=== PATIENT | female | born 1995 | race Caucasian/White ===

== ENCOUNTER 2019-04-11 12:40 | Emergency (ER) | payer OTHER ==
[~2019-04-11] VITALS: Ht 170.2 cm; Wt 62.1 kg
--- NOTE | 2019-04-11 12:55 | ED Syncope ---
General Stated Complaint: SYNCOPE Source of Information: Patient, EMS Exam Limitations: No Limitations History of Present Illness Date Seen by Provider: April 11, 2019 Time Seen by Provider: 12:37 Initial Comments Patient presents to ER by EMS from [facility] with chief complaint that she came in to urgent care today because she was having general malaise, weakness and lack of appetite for the past 2 weeks. She thinks she's lost couple pounds in the last few days because of decreased appetite. Apparently she looked very pale and so they took her to a bed got her blood pressure was 77 systolic. She had a near syncopal event. She felt clammy. Blood sugar was 80 per EMS and when she was laying down when they arrived her blood pressure was 100. They started a 20- gauge in liter of saline. She denies any recent history of nausea vomiting, fever, diarrhea or constipation abdominal pain. She does have some general intermittent aches in her shoulders and bilateral knees. No rashes or tick bites . No medical history. She used to follow Dr. Garay up until a few years ago. She does not take medicines nor have medical allergies. She does not smoke or use recreational drugs. She does occasionally have alcohol but none recently. 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 G0 Allergies and Home Medications Allergies Coded Allergies: No Known Drug Allergies (Unverified , 04/11/19) Home Medications No Active Prescriptions or Reported Meds Patient Home Medication List Home Medication List Reviewed: Yes Review of Systems Constitutional: see HPI; No chills, No fever; malaise EENTM: No ear discharge, No hearing loss Respiratory: No cough, No short of breath Cardiovascular: No chest pain, No edema Gastrointestinal: No abdominal pain, No constipation, No diarrhea, No nausea Genitourinary: No dysuria, No frequency : No LMP: March 21, 2019 Musculoskeletal: see HPI; No back pain; joint pain (bilateral shoulders and knees intermittent aching) Skin: No lesions, No pruritus, No rash Past [id number] Hx Patient Social History Alcohol Use: Rarely Uses Recreational Drug Use: No Smoking Status: Never a Smoker Physical Exam Vital Signs Vital Signs - First Documented 04/11/19 12:40 Temp 97.3 Pulse 81 Resp 20 B/P (MAP) 110/66 (81) Pulse Ox 100 O2 Delivery Room Air Capillary Refill : Height, Weight, BMI Height: '" Weight: lbs. oz. 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 Norm as Tested Cranial Nerves: Normal Hearing, Normal Speech, PERRL Motor/Sensory: No Motor Deficit, No Sensory Deficit Skin: Warm/Dry, Pallor Progress/Results/Core Measures Results/Orders Lab Results Laboratory Tests Test 04/11/19 12:50 04/11/19 13:55 Range/Units White Blood Count 6.3 4.3-11.0 10^3/uL Red Blood Count 4.73 4.35-5.85 10^6/uL Hemoglobin 13.6 11.5-16.0 G/DL Hematocrit 39 35-52 % Mean Corpuscular Volume 81 80-99 FL Mean Corpuscular Hemoglobin 29 25-34 PG Mean Corpuscular Hemoglobin Concent 35 32-36 G/DL Red Cell Distribution Width 12.3 10.0-14.5 % Platelet Count 242 130-400 10^3/uL Mean Platelet Volume 10.9 H 7.4-10.4 FL Neutrophils (%) (Auto) 45 42-75 % Lymphocytes (%) (Auto) 38 12-44 % Monocytes (%) (Auto) 14 H 0-12 % Eosinophils (%) (Auto) 3 0-10 % Basophils (%) (Auto) 0 0-10 % Neutrophils # (Auto) 2.8 1.8-7.8 X 10^3 Lymphocytes # (Auto) 2.4 1.0-4.0 X 10^3 Monocytes # (Auto) 0.9 0.0-1.0 X 10^3 Eosinophils # (Auto) 0.2 0.0-0.3 10^3/uL Basophils # (Auto) 0.0 0.0-0.1 10^3/uL Sodium Level 131 L 135-145 MMOL/L Potassium Level 3.8 3.6-5.0 MMOL/L Chloride Level 93 L 98-107 MMOL/L Carbon Dioxide Level 20 L 21-32 MMOL/L Anion Gap 18 H 5-14 MMOL/L Blood Urea Nitrogen 12 7-18 MG/DL Creatinine 0.71 0.60-1.30 MG/DL Estimat Glomerular Filtration Rate > 60 BUN/Creatinine Ratio 17 Glucose Level 94 70-105 MG/DL Calcium Level 8.9 8.5-10.1 MG/DL Corrected Calcium 8.7 8.5-10.1 MG/DL Magnesium Level 1.6 L 1.8-2.4 MG/DL Total Bilirubin 0.8 0.1-1.0 MG/DL Aspartate Amino Transf (AST/SGOT) 21 5-34 U/L Alanine Aminotransferase (ALT/SGPT) 20 0-55 U/L Alkaline Phosphatase 33 L 40-136 U/L Total Protein 6.8 6.4-8.2 GM/DL Albumin 4.2 3.2-4.5 GM/DL Serum Test, Qualitative NEGATIVE NEGATIVE Urine Color DARK YELLOW Urine Clarity CLEAR Urine pH 6.0 5-9 Urine Specific [place] 1.025 H 1.016-1.022 Urine Protein NEGATIVE NEGATIVE Urine Glucose (UA) NEGATIVE NEGATIVE Urine Ketones 2+ H NEGATIVE Urine Nitrite NEGATIVE NEGATIVE Urine Bilirubin 1+ H NEGATIVE Urine Urobilinogen 0.2 NORMAL MG/DL Urine Leukocyte Esterase NEGATIVE NEGATIVE Urine RBC (Auto) NEGATIVE NEGATIVE Urine RBC NONE /HPF Urine WBC 0-2 /HPF Urine Squamous Epithelial Cells 5-10 /HPF Urine Crystals NONE /LPF Urine Bacteria TRACE /HPF Urine Casts NONE /LPF Urine Mucus LARGE H /LPF Urine Culture Indicated NO Urine Opiates Screen NEGATIVE NEGATIVE Urine Oxycodone Screen NEGATIVE NEGATIVE Urine Methadone Screen NEGATIVE NEGATIVE Urine Propoxyphene Screen NEGATIVE NEGATIVE Urine Barbiturates Screen NEGATIVE NEGATIVE Ur Tricyclic Antidepressants Screen NEGATIVE NEGATIVE Urine Phencyclidine Screen NEGATIVE NEGATIVE Urine Amphetamines Screen NEGATIVE NEGATIVE Urine Methamphetamines Screen NEGATIVE NEGATIVE Urine Benzodiazepines Screen NEGATIVE NEGATIVE Urine Cocaine Screen NEGATIVE NEGATIVE Urine Cannabinoids Screen NEGATIVE NEGATIVE My Orders Orders - BUBBA LAM Cbc With Automated Diff (04/11/19 12:47) Comprehensive Metabolic Panel (04/11/19 12:47) Drug Screen Stat (Urine) (04/11/19 12:47) Hcg,Qualitative Serum (04/11/19 12:47) Magnesium (04/11/19 12:47) Ua Culture If Indicated (04/11/19 12:47) Chest 1 View Ap/Pa Only (04/11/19 12:47) Ct Head Wo (04/11/19 12:47) Continuous Ekg Monitoring (04/11/19 12:47) Ekg Tracing (04/11/19 12:47) Orthostatic Vital Signs (Adult (04/11/19 12:57) Thyroid Stimulating Hormone (04/11/19 12:50) Ed Iv/Invasive Line Start (04/11/19 14:18) Ns Iv 500 Ml (Sodium Chloride 0.9%) (04/11/19 14:18) Medications Given in ED Current Medications Medications Dose Ordered Sig/Frida Route Start Time Stop Time Status Last Admin Dose Admin Sodium Chloride 500 ml @ 0 mls/hr Q0M ONCE IV 04/11/19 14:18 04/11/19 14:19 DC 04/11/19 14:22 999 MLS/HR Vital Signs/I&O 04/11/19 04/11/19 12:40 14:00 Temp 97.3 Pulse 81 79 93 101 Resp 20 B/P (MAP) 110/66 (81) 115/65 (82) 118/65 (82) 111/59 (76) Pulse Ox 100 O2 Delivery Room Air Progress Progress Note #1: Time: 13:14 Progress Note Vasovagal versus orthostatic hypotension from possible infection, anemia, pots, tumor,? EKG, chest x-ray, blood and urine, hCG drug screen and CT of the head. Progress Note #2: Time: 14:06 Progress Note After her liter of fluids randomly had an orthostatic vitals obtained which will the blood pressure did not get this time her heart rate went from 79 up to 110 on standing which is still significant and could represent pots. Plan oral rehydration and another 500 cc of fluid which would be between 20 and 30 cc/kg. Urinalysis pending. Initial ECG Impression Date: April 11, 2019 Initial ECG Impression Time: 12:58 Initial ECG Rate: 72 Initial ECG Rhythm: Normal Sinus Initial ECG Intervals: Normal Initial ECG Impression: Normal Initial ECG Comparisson: No Previous ECG Available Comment No clinically significant ST changes. Diagnostic Imaging Diagonstic Imaging: Xray Plain Films/CT/US/NM/MRI: chest (1v) Comments NAME: SENTHIL PISANO [facility] REC#: [id number] PT STATUS: REG ER : 1995 PHYSICIAN: BUBBA LAM MD ADMIT DATE: 04/11/19/ER FS Draft Date of Exam:04/11/19 CHEST 1 VIEW AP/PA ONLY INDICATION: Hypotension, syncope. Portable chest at 01:12 p.m. FINDINGS: Heart size and pulmonary vascularity are normal. Lungs are clear. There are no effusions or pneumothoraces. IMPRESSION: Negative chest. Dictated on workstation # [id number] Dict: 04/11/19 1343 Trans: 04/11/19 1357 [id number] Interpreted by: CHELSEA BARNARD MD Electronically signed by: NAME: SENTHIL PISANO [facility] REC#: [id number] PT STATUS: REG ER : 1995 PHYSICIAN: BUBBA LAM MD ADMIT DATE: 04/11/19/ER FS Draft Date of Exam:04/11/19 CHEST 1 VIEW AP/PA ONLY INDICATION: Hypotension, syncope. Portable chest at 01:12 p.m. FINDINGS: Heart size and pulmonary vascularity are normal. Lungs are clear. There are no effusions or pneumothoraces. IMPRESSION: Negative chest. Dictated on workstation # [id number] Dict: 04/11/19 1343 Trans: 04/11/19 1357 [id number] Interpreted by: CHELSEA BARNARD MD Electronically signed by: Reviewed: Reviewed by Me Diagonstic Imaging: CT (noncontrast) Plain Films/CT/US/NM/MRI: head Comments NAME: SENTHIL PISANO [facility] REC#: [id number] PT STATUS: REG ER : 1995 PHYSICIAN: BUBBA LAM MD ADMIT DATE: 04/11/19/ER FS Draft Date of Exam:04/11/19 CT HEAD WO PROCEDURE: CT head without contrast. TECHNIQUE: Multiple contiguous axial images were obtained through the brain without the use of intravenous contrast. Auto Exposure Controls were utilized during the CT exam to meet ALARA standards for radiation dose reduction. INDICATION: Syncope and low blood pressure. COMPARISON: No prior studies are available for comparison. FINDINGS: Ventricles and sulci are within normal limits. No sulcal effacement, midline shift or hemorrhage is detected. Cisterns are patent. Visualized paranasal sinuses are clear. IMPRESSION: No acute intracranial process is detected. Dictated on workstation # [id number] Dict: 04/11/19 1418 Trans: 04/11/19 1422 [facility] [id number] Interpreted by: GUI MONTERROSO MD Electronically signed by: Reviewed: Reviewed by Me Departure Impression Primary Impression: Orthostatic hypotension Additional Impression: Vasovagal near-syncope Disposition: 01 HOME, SELF-CARE Condition: Improved Departure-Patient Inst. Decision time for Depature: 14:52 Referrals: STEPHANY KUHN MD Patient Instructions: LOCAL PHYSICIAN LIST, Orthostatic Hypotension (DC) Add. Discharge Instructions: Drink more fluids for the time being. Sports drinks such as Gatorade or Powerade are encouraged. Limit or avoid caffeine for now. Establish care with a primary care doctor. You may call the bacteriologist pharmaceutical Dr. Kuhn and request an appointment in the next 1-2 weeks for further workup/characterization of why you're passing out. If you have new or worrisome symptoms such as intractable nausea vomiting, chest pain, shortness of breath then I would invite you to return to the nearest ER for further evaluation. Scripts No Active Prescriptions or Reported Meds Copy Copies To 1: STEPHANY KUHN MD, TITUS J April 11, 2019 12:55
[2019-04-11 13:38] LABS: BASOPHILS % (AUTO) 0 % (0-10); EOSINOPHILS % (AUTO) 3 % (0-10); HEMATOCRIT 39 % (35-52); HEMOGLOBIN 13.6 G/DL (11.5-16.0); LYMPHOCYTES % (AUTO) 38 % (12-44); MEAN CORPUSCULAR HEMOGLOBIN 29 PG (25-34); MEAN CORPUSCULAR HGB CONC 35 G/DL (32-36); MEAN CORPUSCULAR VOLUME 81 FL (80-99); MEAN PLATELET VOLUME 10.9 FL (7.4-10.4); MONOCYTES % (AUTO) 14 % (0-12); NEUTROPHILS # (AUTO) 2.8 X 10^3 (1.8-7.8); NEUTROPHILS % (AUTO) 45 % (42-75); PLATELET COUNT 242 10^3/uL (130-400); RED CELL DISTRIBUTION WIDTH 12.3 % (10.0-14.5); WHITE BLOOD COUNT 6.3 10^3/uL (4.3-11.0)
[2019-04-11 13:39] LABS: EOSINOPHILS # (AUTO) 0.2 10^3/uL (0.0-0.3); LYMPHOCYTES # (AUTO) 2.4 X 10^3 (1.0-4.0); MONOCYTES # (AUTO) 0.9 X 10^3 (0.0-1.0)
[2019-04-11 13:43] LABS: ALANINE AMINOTRANSFERASE 20 U/L (0-55); ALBUMIN 4.2 GM/DL (3.2-4.5); ALKALINE PHOSPHATASE 33 U/L (40-136); BILIRUBIN,TOTAL 0.8 MG/DL (0.1-1.0); BUN/CREATININE RATIO 17; CALCIUM 8.9 MG/DL (8.5-10.1); CARBON DIOXIDE 20 MMOL/L (21-32); CHLORIDE 93 MMOL/L (98-107); CREATININE SERUM 0.71 MG/DL (0.60-1.30); GFR ESTIMATED > 60; GLUCOSE 94 MG/DL (70-105); MAGNESIUM 1.6 MG/DL (1.8-2.4); POTASSIUM 3.8 MMOL/L (3.6-5.0); SODIUM 131 MMOL/L (135-145); TOTAL PROTEIN 6.8 GM/DL (6.4-8.2)
--- NOTE | 2019-04-11 13:58 | Diagnostic Imaging Report ---
INDICATION: Hypotension, syncope. Portable chest at 01:12 p.m. FINDINGS: Heart size and pulmonary vascularity are normal. Lungs are clear. There are no effusions or pneumothoraces. IMPRESSION: Negative chest. Dictated by: Dictated on workstation # [id number]
[2019-04-11 14:00] VITALS: BP_SYST 111; BP_SYST 115; BP_SYST 118; BP_DIAS 59; BP_DIAS 65
--- NOTE | 2019-04-11 14:00 | NUR ---
ORTHOSTATS COMPLETED AFTER 1 L BOLUS.
--- NOTE | 2019-04-11 14:17 | NUR ---
ICE WATER GRANTED, DR PLANNING MORE FLUIDS.
[2019-04-11] MEDS: NS IV 500 ML 500 ML IV ONE (14:22)
--- NOTE | 2019-04-11 14:23 | Diagnostic Imaging Report ---
PROCEDURE: CT head without contrast. TECHNIQUE: Multiple contiguous axial images were obtained through the brain without the use of intravenous contrast. Auto Exposure Controls were utilized during the CT exam to meet ALARA standards for radiation dose reduction. INDICATION: Syncope and low blood pressure. COMPARISON: No prior studies are available for comparison. FINDINGS: Ventricles and sulci are within normal limits. No sulcal effacement, midline shift or hemorrhage is detected. Cisterns are patent. Visualized paranasal sinuses are clear. IMPRESSION: No acute intracranial process is detected. Dictated by: Dictated on workstation # [id number]
[2019-04-11 14:41] LABS: AMPHETAMINE SCREEN, URINE NEGATIVE (NEGATIVE); BARBITURATE SCREEN URINE NEGATIVE (NEGATIVE); BENZODIAZEPINES SCREEN URINE NEGATIVE (NEGATIVE); CANNABINOID SCREEN, URINE NEGATIVE (NEGATIVE); COCAINE SCREEN URINE NEGATIVE (NEGATIVE); METHADONE STAT NEGATIVE (NEGATIVE); METHAMPHETAMINE SCREEN URINE S NEGATIVE (NEGATIVE); OPIATE SCREEN URINE NEGATIVE (NEGATIVE); OXYCODONE STAT NEGATIVE (NEGATIVE); PROPOXYPHENE STAT NEGATIVE (NEGATIVE); TRICYCLIC ANTIDEPRESSANTS SCRE NEGATIVE (NEGATIVE)
[2019-04-11 14:44] LABS: CLARITY,URINE CLEAR; COLOR,URINE DARK YELLOW
[2019-04-11 14:45] LABS: BILIRUBIN,URINE 1+ (NEGATIVE); GLUCOSE, URINE (UA) NEGATIVE (NEGATIVE); KETONES,URINE 2+ (NEGATIVE); LEUKOCYTE ESTERASE ,URINE NEGATIVE (NEGATIVE); NITRITE,URINE NEGATIVE (NEGATIVE); PROTEIN,URINE NEGATIVE (NEGATIVE); UROBILINOGEN,URINE 0.2 MG/DL (NORMAL)
[2019-04-11 14:46] LABS: BACTERIA,URINE TRACE /HPF; WBC,URINE 0-2 /HPF
[2019-04-11 15:15] VITALS: BP_SYST 102; BP_SYST 115; BP_SYST 99; BP_DIAS 54; BP_DIAS 61; BP_DIAS 72
[2019-04-11 16:26] VITALS: BP 106/63
== END 2019-04-11 15:20 | disposition home or self-care (01) ==
LOC: ER FS 12:44
DX: I95.1 Orthostatic hypotension (principal); R55 Syncope and collapse
CPT/HCPCS: 36415; 70450; 71045; 80053; 80306; 81000; 83735; 84443; 84703; 85025; 93005; 96360

== ENCOUNTER 2019-04-29 18:40 | Emergency (ER) | payer OTHER ==
[~2019-04-29] VITALS: Ht 170.2 cm; Wt 61.2 kg
--- OUTSIDE RECORDS SUMMARY | 2019-04-29 18:46 | XMS REPORT | Continuity of Care Document ---
Author Organization Unknown Address Unknown Allergies Active Description Code Type Severity Reaction Onset Reported/Identified Relationship to Patient Clinical Status Yes No Known Drug Allergies [id number] Drug Allergy Unknown N/A 04/11/2019 Medications There is no data. Problems Date Dx Coded Attending Type Code Diagnosis Diagnosed By 04/14/2019 GENARO LOPEZ, BUBBA Pham Ot I95.1 ORTHOSTATIC HYPOTENSION 04/14/2019 GENARO LOPEZ, BUBBA Pham Ot R55 SYNCOPE AND COLLAPSE Procedures There is no data. Results Test Result Range Complete blood count (CBC) with automated white blood cell (WBC) differential - 04/11/19 12:50 Blood leukocytes automated count (number/volume) 6.3 10*3/uL 4.3-11.0 Blood erythrocytes automated count (number/volume) 4.73 10*6/uL 4.35-5.85 Venous blood hemoglobin measurement (mass/volume) 13.6 g/dL 11.5-16.0 Blood hematocrit (volume fraction) 39 % 35-52 Automated erythrocyte mean corpuscular volume 81 [foz_us] 80-99 Automated erythrocyte mean corpuscular hemoglobin (mass per erythrocyte) 29 pg 25-34 Automated erythrocyte mean corpuscular hemoglobin concentration measurement (mass/volume) 35 g/dL 32-36 Automated erythrocyte distribution width ratio 12.3 % 10.0- 14.5 Automated blood platelet count (count/volume) 242 10*3/uL 130-400 Automated blood platelet mean volume measurement 10.9 [foz_us] 7.4-10.4 Automated blood neutrophils/100 leukocytes 45 % 42-75 Automated blood lymphocytes/100 leukocytes 38 % 12-44 Blood monocytes/100 leukocytes 14 % 0-12 Automated blood eosinophils/100 leukocytes 3 % 0-10 Automated blood basophils/100 leukocytes 0 % 0-10 Blood neutrophils automated count (number/volume) 2.8 10*3 1.8-7.8 Blood lymphocytes automated count (number/volume) 2.4 10*3 1.0-4.0 Blood monocytes automated count (number/volume) 0.9 10*3 0.0- 1.0 Automated eosinophil count 0.2 10*3/uL 0.0-0.3 Automated blood basophil count (count/volume) 0.0 10*3/uL 0.0-0.1 Comprehensive metabolic panel - 04/11/19 12:50 Serum or plasma sodium measurement (moles/volume) 131 mmol/L 135-145 Serum or plasma potassium measurement (moles/volume) 3.8 mmol/L 3.6-5.0 Serum or plasma chloride measurement (moles/volume) 93 mmol/L 98-107 Carbon dioxide 20 mmol/L 21-32 Serum or plasma anion gap determination (moles/volume) 18 mmol/L 5-14 Serum or plasma urea nitrogen measurement (mass/volume) 12 mg/dL 7-18 Serum or plasma creatinine measurement (mass/volume) 0.71 mg/dL 0.60-1.30 Serum or plasma urea nitrogen/creatinine mass ratio 17 NRG Serum or plasma creatinine measurement with calculation of estimated glomerular filtration rate > NRG Serum or plasma glucose measurement (mass/volume) 94 mg/dL 70-105 Serum or plasma calcium measurement (mass/volume) 8.9 mg/dL 8.5-10.1 Serum or plasma total bilirubin measurement (mass/volume) 0.8 mg/dL 0.1-1.0 Serum or plasma alkaline phosphatase measurement (enzymatic activity/volume) 33 U/L 40-136 Serum or plasma aspartate aminotransferase measurement (enzymatic activity/volume) 21 U/L 5-34 Serum or plasma alanine aminotransferase measurement (enzymatic activity/volume) 20 U/L 0-55 Serum or plasma protein measurement (mass/volume) 6.8 g/dL 6.4-8.2 Serum or plasma albumin measurement (mass/volume) 4.2 g/dL 3.2-4.5 CALCIUM CORRECTED 8.7 mg/dL 8.5-10.1 Magnesium - 04/11/19 12:50 Magnesium 1.6 mg/dL 1.8-2.4 THYROID STIMULATING HORMONE - 04/11/19 12:50 THYROID STIMULATING HORMONE 8.37 u[iU]/mL 0.35-4.94 Urine drug screening test - 04/11/19 13:55 Urine phencyclidine detection by screening method NEGATIVE NEGATIVE Urine benzodiazepines detection by screening method NEGATIVE NEGATIVE Urine cocaine detection NEGATIVE NEGATIVE Urine amphetamines detection by screening method NEGATIVE NEGATIVE Urine methamphetamine detection by screening method NEGATIVE NEGATIVE Urine cannabinoids detection by screening method NEGATIVE NEGATIVE Urine opiates detection by screening method NEGATIVE NEGATIVE Urine barbiturates detection NEGATIVE NEGATIVE Screening urine tricyclic antidepressants detection NEGATIVE NEGATIVE Urine methadone detection by screening method NEGATIVE NEGATIVE Urine oxycodone detection NEGATIVE NEGATIVE Urine propoxyphene detection NEGATIVE NEGATIVE Complete urinalysis with reflex to culture - 04/11/19 13:55 Urine color determination DARK YELLOW NRG Urine clarity determination CLEAR NRG Urine pH measurement by test strip 6.0 5-9 Specific gravity of urine by test strip 1.025 1.016-1.022 Urine protein assay by test strip, semi-quantitative NEGATIVE NEGATIVE Urine glucose detection by automated test strip NEGATIVE NEGATIVE Erythrocytes detection in urine sediment by light microscopy NEGATIVE NEGATIVE Urine ketones detection by automated test strip 2+ NEGATIVE Urine nitrite detection by test strip NEGATIVE NEGATIVE Urine total bilirubin detection by test strip 1+ NEGATIVE Urine urobilinogen measurement by automated test strip (mass/volume) 0.2 mg/dL NORMAL Urine leukocyte esterase detection by dipstick NEGATIVE NEGATIVE Automated urine sediment erythrocyte count by microscopy (number/high power field) NONE NRG Automated urine sediment leukocyte count by microscopy (number/high power field) [HPF] NRG Bacteria detection in urine sediment by light microscopy TRACE NRG Squamous epithelial cells detection in urine sediment by light microscopy 5-10 NRG Crystals detection in urine sediment by light microscopy NONE NRG Casts detection in urine sediment by light microscopy NONE NRG Mucus detection in urine sediment by light microscopy LARGE NRG Complete urinalysis with reflex to culture NO NRG Encounters ACCT No. Visit Date/Time Discharge Status Pt. Type Provider Facility Loc./Unit Complaint [id number] 04/11/2019 12:00:00 04/11/2019 23:59:59 CLS Outpatient [facility] [id number] 04/11/2019 12:44:00 04/11/2019 15:20:00 DIS Outpatient GENARO LOPEZ, BUBBA Pham [facility] ER FS SYNCOPE
[2019-04-29] MEDS ORDERED: NS IV 1000 ML 1,000 ML IV SCH ×2 (19:04→20:06)
[2019-04-29] MEDS ORDERED: ACETAMINOPHEN 325 MG TABLET PO ONE (19:15)
[2019-04-29] MEDS ORDERED: IBUPROFEN 800 MG (MOTRIN) TAB PO ONE (19:15)
--- NOTE | 2019-04-29 19:30 | ED General ---
General Chief Complaint: General Problems/Pain Stated Complaint: DIZZINESS/THROAT IS BURING Nursing Triage Note: Was seen in the ED in March and was dehydrated and had low blood pressure. Since then has been having intermittent shortness of breath with exertion and fatigue. Today her head feels "weird," described as in between dizzy and lightheaded and her throat is burning. States her last menstrual period was April 14. Nursing Sepsis Screen: No Definite Risk History of Present Illness Date Seen by Provider: Apr 29, 2019 Time Seen by Provider: 18:50 Initial Comments The patient is a 23-year-old otherwise healthy female who presents with concern for a number of vague symptoms with onset over the last approximately one month. She reports feeling lightheaded intermittently over that period of time, usually with exertion or ambulation or sometimes with a rising from a seated position. She feels somewhat lightheaded today. She has not had any jodie falls or syncop al episodes. She reports some mild associated shortness of breath with activity at times. Over the last day or so she has had some mild burning discomfort to her throat in association with other symptoms. This is the only new symptom; she had all other symptoms in March at which time she was evaluated here and workup was largely unremarkable and reassuring aside from some evidence of concentrated urine suspicious for some degree of dehydration. Patient denies focal/specific symptoms and specifically denies fevers, nausea or vomiting, headache, focal weakness, numbness, tingling, neck stiffness, vision changes, chest pain, flank pain, back pain, dysuria or hematuria, unusual vaginal discharge or bleeding, changes in bowel habits. The patient does note a normal last menstrual period about 2 weeks ago. I discussed with the patient in view of indolent and somewhat vague symptoms over the course of greater than one month with previous reassuring lab work, that I felt it was unlikely that we would arrive at an answer as to what was causing her symptoms here in the emergency department. I expressed to her that we would work hard to ensure that she was safe and would check some labs and urine as well as an EKG and would provide some fluids and medication for symptomatically management. I stressed to the patient that if workup was reassuring that we would need her to follow up very closely with the primary care physicianshe has not yet established with a primary care physician and we discussed that this was the very most important next step after emergency department discharge. She and her family understood and agreed. Allergies and Home Medications Allergies Coded Allergies: No Known Drug Allergies (Unverified , 04/11/19) Home Medications No Active Prescriptions or Reported Meds Patient Home Medication List Home Medication List Reviewed: Yes Review of Systems Review of Systems Constitutional: see HPI All Other Systems Reviewed Negative Unless Noted: Yes Past Ghttzhv-Dtqhox-Jzssvi Hx Past Med/Social Hx: Reviewed Nursing Past Med/Soc Hx Patient Social History Alcohol Use: Denies Use Recreational Drug Use: No Smoking Status: Never a Smoker 2nd Hand Smoke Exposure: No Recent Foreign Travel: No Contact w/Someone Who Travel: No Recent Infectious Disease Expo: No Recent Hopitalizations: No Physical Abuse: No Sexual Abuse: No Mistreated: No Fear: No Seasonal Allergies Seasonal Allergies: No Past Medical History Surgeries: Yes (WISDOM TEETH) Respiratory: No Cardiac: No Neurological: No Genitourinary: No Gastrointestinal: No Musculoskeletal: No Endocrine: No HEENT: No Cancer: No Psychosocial: No Integumentary: No Blood Disorders: No Family Medical History Reviewed Nursing Family Hx Physical Exam Vital Signs Vital Signs - First Documented 04/29/19 18:45 Temp 97.8 Pulse 100 Resp 18 B/P (MAP) 95/61 (72) Pulse Ox 98 Capillary Refill : Less Than 3 Seconds Height, Weight, BMI Height: 5'7.00" Weight: 135lbs. oz. [id number]; BMI Method:Stated General Appearance: No Apparent Distress Comments This is a younger female appearing nontoxic and in no acute distress. Head is normocephalic and atraumatic. Neck is supple and nontender. Oropharynx is moist. Lungs are clear to auscultation in all stations. There is a normal S1 and S2 without rubs or gallops and capillary refill is appropriate, was 2 seconds globally. Abdomen is soft, nontender and nondistended. Skin is warm and dry without cyanosis, clubbing or edema. Psychiatrically, the patient demonstrated appropriate mood and affect and is alert. Neurologically, cranial nerves II through XII are intact and there are no lateralizing deficits noted. Speech is normal. Language is normal. Coordination is normal. There is no dysmetria with finger to nose bilaterally. Strength is 5 out of 5 in all joints of bilateral upper and lower extremity. Sensation is intact to light touch in bilateral upper and lower extremity. The patient is alert and oriented 4. She came to the narrow, steady gait in the emergency department. Visual gomes OU are globally intact to finger counting. Progress/Results/Core Measures Suspected Sepsis Recent Fever Within 48 Hours: No Infection Criteria Present: None New/Unexplained Altered Menta: No Sepsis Screen: No Definite Risk SIRS Temperature:97.8 Pulse: 100 Respiratory Rate: 18 Laboratory Tests 04/29/19 19:20: White Blood Count 5.9 Blood Pressure 95 /61 Mean: 72 Laboratory Tests 04/29/19 19:20: Creatinine 0.60, Platelet Count 201, Total Bilirubin 0.8 Results/Orders Lab Results Laboratory Tests Test 04/29/19 19:13 04/29/19 19:20 Range/Units Urine Color YELLOW Urine Clarity CLEAR Urine pH 6.0 5-9 Urine Specific [place] >=1.030 1.016-1.022 Urine Protein NEGATIVE NEGATIVE Urine Glucose (UA) NEGATIVE NEGATIVE Urine Ketones 2+ H NEGATIVE Urine Nitrite NEGATIVE NEGATIVE Urine Bilirubin 1+ H NEGATIVE Urine Urobilinogen 0.2 NORMAL MG/DL Urine Leukocyte Esterase NEGATIVE NEGATIVE Urine RBC (Auto) NEGATIVE NEGATIVE Urine RBC NONE /HPF Urine WBC 0-2 /HPF Urine Squamous Epithelial Cells RARE /HPF Urine Crystals NONE /LPF Urine Bacteria FEW H /HPF Urine Casts NONE /LPF Urine Mucus SMALL H /LPF Urine Culture Indicated NO Urine Test NEGATIVE NEGATIVE White Blood Count 5.9 4.3-11.0 10^3/uL Red Blood Count 4.48 4.35-5.85 10^6/uL Hemoglobin 12.8 11.5-16.0 G/DL Hematocrit 37 35-52 % Mean Corpuscular Volume 83 80-99 FL Mean Corpuscular Hemoglobin 29 25-34 PG Mean Corpuscular Hemoglobin Concent 35 32-36 G/DL Red Cell Distribution Width 12.1 10.0-14.5 % Platelet Count 201 130-400 10^3/uL Mean Platelet Volume 10.9 H 7.4-10.4 FL Neutrophils (%) (Auto) 45 42-75 % Lymphocytes (%) (Auto) 39 12-44 % Monocytes (%) (Auto) 11 0-12 % Eosinophils (%) (Auto) 4 0-10 % Basophils (%) (Auto) 0 0-10 % Neutrophils # (Auto) 2.7 1.8-7.8 X 10^3 Lymphocytes # (Auto) 2.3 1.0-4.0 X 10^3 Monocytes # (Auto) 0.7 0.0-1.0 X 10^3 Eosinophils # (Auto) 0.2 0.0-0.3 10^3/uL Basophils # (Auto) 0.0 0.0-0.1 10^3/uL Sodium Level 124 *L 135-145 MMOL/L Potassium Level 3.8 3.6-5.0 MMOL/L Chloride Level 86 L 98-107 MMOL/L Carbon Dioxide Level 22 21-32 MMOL/L Anion Gap 16 H 5-14 MMOL/L Blood Urea Nitrogen 7 7-18 MG/DL Creatinine 0.60 0.60-1.30 MG/DL Estimat Glomerular Filtration Rate > 60 BUN/Creatinine Ratio 12 Glucose Level 84 70-105 MG/DL Calcium Level 9.2 8.5-10.1 MG/DL Corrected Calcium 9.1 8.5-10.1 MG/DL Total Bilirubin 0.8 0.1-1.0 MG/DL Aspartate Amino Transf (AST/SGOT) 23 5-34 U/L Alanine Aminotransferase (ALT/SGPT) 21 0-55 U/L Alkaline Phosphatase 28 L 40-136 U/L Troponin T < 6 <=10 NG/L Pro-B-Type Natriuretic Peptide 25.8 <75.0 PG/ML Total Protein 6.7 6.4-8.2 GM/DL Albumin 4.1 3.2-4.5 GM/DL Monoscreen NEGATIVE NEGATIVE My Orders Orders - NASH BERGER MD Cbc With Automated Diff (04/29/19 19:) Comprehensive Metabolic Panel (04/29/19 19:04) Ekg Tracing (04/29/19:04) Ua Culture If Indicated (04/29/19:) Hcg,Qualitative Urine (04/29/19:04) Monotest (04/29/19:) Acetaminophen Tablet/Caplet (Tylenol T (04/29/19 19:15) Ibuprofen Tablet (Motrin Tablet) (04/29/19 19:15) Ed Iv/Invasive Line Start (04/29/19 19:04) Ns Iv 1000 Ml (Sodium Chloride 0.9%) (04/29/19 19:04) Thyroid Stimulating Hormone (6/16/19 19:33) Free T4 (Free Thyroxine) (04/29/19 19:33) Troponin T (04/29/19 19:33) Probnp Fs (04/29/19 19:33) Ns Iv 1000 Ml (Sodium Chloride 0.9%) (04/29/19 20:06) Electrolytes Urine Random (04/29/19 20:06) Osmolality Serum (04/29/19 20:06) Osmolality Urine (04/29/19 20:06) Medications Given in ED Current Medications Medications Dose Ordered Sig/Frida Route Start Time Stop Time Status Last Admin Dose Admin Acetaminophen 975 mg ONCE ONCE PO 04/29/19 19:15 04/29/19 19:16 DC 04/29/19 19:31 975 MG Ibuprofen 800 mg ONCE ONCE PO 04/29/19 19:15 04/29/19 19:16 DC 04/29/19 19:32 800 MG Vital Signs/I&O 04/29/19 18:45 Temp 97.8 Pulse 100 Resp 18 B/P (MAP) 95/61 (72) Pulse Ox 98 Capillary Refill : Less Than 3 Seconds Blood Pressure Mean: 72 Progress Note : Time: 20:37 Progress Note Workup as above, significant for mild hypochloremic hyponatremia for which the patient has received 2 L of normal saline fluid rehydration and feels better. Otherwise large workup is unremarkable and reassuring. We have sent out a thyroid panel as well as serum and urine osms and urine electrolytes to help characterize the cause for hyponatremia. Overall clinical picture is not suggestive of any acute process which would be endangering to the patient but she will certainly need close followup in the primary care clinic and this has been discussed with her at length. We have provided referral information for very close followup here with [facility] and the patient is to call on Tuesday to set up a follow-up appointment. She understands that if she feels worse is that of better or develops other new symptoms of concern that she should return immediately for reevaluation. All questions were answered. We will proceed with discharge home at this time. ECG EKG : Comment Sinus rhythm, no acute ST elevation or depression, rate 66, CT 156, QRS 83, QTC 425, EP interpretation. Departure Impression Primary Impression: Lightheadedness Additional Impressions: Hypochloremia Acute hyponatremia Disposition: HOME, SELF-CARE Condition: Improved Departure-Patient Inst. Referrals: NO,LOCAL PHYSICIAN (PCP/Family) Primary Care Physician Patient Instructions: Hyponatremia Add. Discharge Instructions: We are referring you to local primary care for very close followup in the clinic to discuss next steps in care. Testing was reassuring today aside from evidence of low blood sodium for which we have sent additional send-out laboratory testing which will need to be followed up on in the clinic at your follow-up appointment. We have also sent thyroid testing which can be followed up on at that time. If you feel worsen instead of better or develop other symptoms of concern, please return immediately to the emergency department for reevaluation. Otherwise, as discussed it is very important that you be seen in the clinic by a primary care doctor to follow up. Stay hydrated and drink plenty of water; you may wish to try electrolye-balanced formulas such as PediaLyte. Scripts No Active Prescriptions or Reported Meds NASH BERGER MD Apr 29, 2019 19:30
[2019-04-29 19:32] LABS: HEMATOCRIT 37 % (35-52); HEMOGLOBIN 12.8 G/DL (11.5-16.0); MEAN CORPUSCULAR HEMOGLOBIN 29 PG (25-34); MEAN CORPUSCULAR HGB CONC 35 G/DL (32-36); MEAN CORPUSCULAR VOLUME 83 FL (80-99); PLATELET COUNT 201 10^3/uL (130-400); RED CELL DISTRIBUTION WIDTH 12.1 % (10.0-14.5); WHITE BLOOD COUNT 5.9 10^3/uL (4.3-11.0)
[2019-04-29 19:33] LABS: BASOPHILS % (AUTO) 0 % (0-10); EOSINOPHILS # (AUTO) 0.2 10^3/uL (0.0-0.3); EOSINOPHILS % (AUTO) 4 % (0-10); LYMPHOCYTES # (AUTO) 2.3 X 10^3 (1.0-4.0); LYMPHOCYTES % (AUTO) 39 % (12-44); MEAN PLATELET VOLUME 10.9 FL (7.4-10.4); MONOCYTES # (AUTO) 0.7 X 10^3 (0.0-1.0); MONOCYTES % (AUTO) 11 % (0-12); NEUTROPHILS # (AUTO) 2.7 X 10^3 (1.8-7.8); NEUTROPHILS % (AUTO) 45 % (42-75)
[2019-04-29 19:40] LABS: CLARITY,URINE CLEAR; COLOR,URINE YELLOW; GLUCOSE, URINE (UA) NEGATIVE (NEGATIVE); KETONES,URINE 2+ (NEGATIVE); NITRITE,URINE NEGATIVE (NEGATIVE); PROTEIN,URINE NEGATIVE (NEGATIVE)
[2019-04-29 19:41] LABS: BACTERIA,URINE FEW /HPF; BILIRUBIN,URINE 1+ (NEGATIVE); LEUKOCYTE ESTERASE ,URINE NEGATIVE (NEGATIVE); SQUAMOUS EPITHELIAL CELL,UR RARE /HPF; UROBILINOGEN,URINE 0.2 MG/DL (NORMAL); WBC,URINE 0-2 /HPF
[2019-04-29 20:00] LABS: POTASSIUM 3.8 MMOL/L (3.6-5.0); SODIUM 124 MMOL/L (135-145)
[2019-04-29 20:01] LABS: ALANINE AMINOTRANSFERASE 21 U/L (0-55); ALBUMIN 4.1 GM/DL (3.2-4.5); ALKALINE PHOSPHATASE 28 U/L (40-136); BILIRUBIN,TOTAL 0.8 MG/DL (0.1-1.0); BUN/CREATININE RATIO 12; CALCIUM 9.2 MG/DL (8.5-10.1); CARBON DIOXIDE 22 MMOL/L (21-32); CHLORIDE 86 MMOL/L (98-107); GFR ESTIMATED > 60; GLUCOSE 84 MG/DL (70-105); TOTAL PROTEIN 6.7 GM/DL (6.4-8.2)
[2019-04-29 20:49] VITALS: BP 102/73
[2019-04-30 15:33] LABS: FREE T4 (FREE THYROXINE) 0.82 NG/DL (0.70-1.48)
== END 2019-04-29 20:50 | disposition home or self-care (01) ==
LOC: EDUNIT# 18:40 → ER FS 18:42
DX: R42 Dizziness and giddiness (principal); E87.8 Other disorders of electrolyte and fluid balance, not elsewhere classified; E87.1 Hypo-osmolality and hyponatremia
CPT/HCPCS: 36415; 80053; 81000; 82436; 83880; 83930; 83935; 84133; 84300; 84439; 84443; 84484; 84703; 85025; 86308; 96360